=== PATIENT | female | born 1945 | race Caucasian/White ===

== ENCOUNTER 2020-01-07 21:16 | Emergency (ER) | payer OTHER ==
--- NOTE | 2020-01-07 21:24 | ED.PDOC ---
History of Present Illness - General Time Seen by Provider: 01/07/20 21:17 Source: patient, RN notes reviewed, Vital Signs reviewed - History of Present Illness Initial Comments: 74 yo F with a pmh of htn comes in after eating fried chicken with coughing and sensation of something stuck in her throat. Couldn't breath so came in for evaluation. When patient arrived she is wheezing, hypoxic and coughing. Timing/Duration: 1/2 hour Severity: moderate Allergies/Adverse Reactions: Allergies NO KNOWN ALLERGY Allergy (Verified 01/07/20 21:22) Home Medications: Ambulatory Orders Cholecalciferol [Vitamin D] 1,000 unit PO DAILY 01/07/20 Enalapril Maleate 20 mg PO DAILY 01/07/20 Olanzapine 10 mg PO DAILY 01/07/20 Omeprazole 20 mg PO DAILY 01/07/20 Pravastatin Sodium 10 mg PO DAILY 01/07/20 Suvorexant [Belsomra] 10 mg PO DAILY 01/07/20 Trazodone HCl 150 mg PO DAILY 01/07/20 Review of Systems - Review of Systems Constitutional: Denies: chills, fever EENTM: States: throat pain. Denies: blurred vision, ear discharge, mouth pain Respiratory: States: cough, short of breath, stridor, wheezing Cardiology: Denies: chest pain, palpitations Gastrointestinal/Abdominal: Denies: abdominal pain, diarrhea, nausea, vomiting Musculoskeletal: Denies: joint pain, joint swelling, muscle pain Skin: Denies: dryness, rash Neurological: Denies: headache, numbness, paresthesia, tingling, tremors, weakness Endocrine: Denies: unexplained weight gain, unexplained weight loss Hematologic/Lymphatic: Denies: easy bleeding, easy bruising Past Medical History (General) - Patient Medical History Hx Hypertension: Yes Family Medical History - Family History Mother Family History: Unknown Physical Exam - Physical Exam General Appearance: Alert, Well Developed, Well Groomed, Well Hydrated, Well Nourished Eyes, Ears, Nose, Throat Exam: normal ENT inspection Neck: non-tender, supple, normal inspection Respiratory: chest non-tender, decreased breath sounds, stridor, wheezing Cardiovascular/Chest: normal peripheral pulses, regular rate, rhythm, no edema, no gallop, no JVD, no murmur Peripheral Pulses: radial,right: 2+, radial,left: 2+, dorsalis pedis,right: 2+, dorsalis pedis,left: 2+ Gastrointestinal/Abdominal: normal bowel sounds, non tender, soft, no organomegaly, no pulsatile mass Rectal Exam: deferred Extremity: normal range of motion, non-tender, normal inspection, no pedal edema Neurologic: pen maker II-XII nml as tested, no motor/sensory deficits, alert, normal mood/affect, oriented x 3 Skin Exam: normal color, warm/dry Progress - Progress Progress: 01/07/20 21:55 patient saturating 95% on 5 L. Will not intubate due to concern that positive pressure ventilation could lead to complete obstruction. Maintain position of comfort. given small dose of benzo for anxiety. She has not taken her evening dose of olanzapine. 01/07/20 22:13 Sodium Chloride 0.9% 1000ML [Ns 1000 ml] 1,000 ml IVS ONCE Laboratory Results WBC 5.7 K/mm3 (4.8-10.8) 01/07/20 22:00 RBC 3.87 M/mm3 (4.20-5.40) L 01/07/20 22:00 Hgb 12.0 gm/dL (12.0-16.0) 01/07/20 22:00 Hct 34.4 % (36.0-47.0) L 01/07/20 22:00 MCV 88.7 fl (81.0-99.0) 01/07/20 22:00 MCH 31.0 pg (27.0-31.0) 01/07/20 22:00 MCHC 34.9 g/dL (33.0-37.0) 01/07/20 22:00 RDW 14.1 % (11.5-14.5) 01/07/20 22:00 Plt Count 280 K/mm3 (130-400) 01/07/20 22:00 MPV 6.5 fl (7.40-10.4) L 01/07/20 22:00 Absolute Neuts (auto) 3.50 K/uL (1.8-6.8) 01/07/20 22:00 Absolute Lymphs (auto) 1.70 K/uL (1.0-3.4) 01/07/20 22:00 Absolute Monos (auto) 0.30 K/uL (0.2-0.8) 01/07/20 22:00 Absolute Eos (auto) 0.10 K/uL (0.0-0.4) 01/07/20 22:00 Absolute Basos (auto) 0.00 K/uL (0.0-0.1) 01/07/20 22:00 Neutrophils % 61.8 % (42.0-78.0) 01/07/20 22:00 Lymphocytes % 29.3 % (20.0-50.0) 01/07/20 22:00 Monocytes % 5.9 % (2.0-9.0) 01/07/20 22:00 Eosinophils % 2.5 % (1.0-5.0) 01/07/20 22:00 Basophils % 0.5 % (0.0-2.0) 01/07/20 22:00 Sodium 137 mmol/L (135-145) 01/07/20 22:00 Potassium 3.1 mmol/L (3.6-5.0) L 01/07/20 22:00 Chloride 102 mmol/L (101-111) 01/07/20 22:00 Carbon Dioxide 20 mmol/L (21-31) L 01/07/20 22:00 Anion Gap 18.1 (12-18) H 01/07/20 22:00 BUN 17 mg/dL (7-18) 01/07/20 22:00 Creatinine 0.77 mg/dL (0.6-1.3) 01/07/20 22:00 BUN/Creatinine Ratio 22.1 (10-20) H 01/07/20 22:00 Random Glucose 117 mg/dL (70-105) H 01/07/20 22:00 Serum Osmolality 276.4 mOsm/L (275-295) 01/07/20 22:00 Calcium 8.4 mg/dL (8.4-10.2) 01/07/20 22:00 Total Bilirubin 0.6 mg/dL (0.2-1.0) 01/07/20 22:00 AST 23 IU/L (10-42) 01/07/20 22:00 ALT 21 IU/L (10-60) 01/07/20 22:00 Alkaline Phosphatase 63 IU/L (42-121) 01/07/20 22:00 Serum Total Protein 7.1 gm/dL (6.4-8.2) 01/07/20 22:00 Albumin 4.5 g/dl (3.2-5.5) 01/07/20 22:00 Globulin 2.6 gm/dL (2.3-3.5) 01/07/20 22:00 Albumin/Globulin Ratio 1.7 (1.1-1.9) 01/07/20 22:00 - Results/Orders Results/Orders: The data reviewed when caring for this patient included: nurse notes, prior records, etc. The history and assessments from nurses notes were reviewed and considered, and the patient's home medication list was also reviewed and considered. My assessment and the results of testing completed here in the ED were discussed with the patient/family. All questions were answered, and they express understanding of my assessment and the plan. - EKG/XRAY/CT XRAY: neck - no fb seen on neck or cxr. deviation of normal rim glottic narrowing could be from rotation. - Consult/PCP Time Called: 21:21 Consult/PCP: Dr. Barboza Departure - Departure Clinical Impression: Airway obstruction due to foreign body, Hypoxia Time of Disposition: 22:00 Disposition: Transfer to Hospital Condition: Fair Home Medications: Ambulatory Orders Cholecalciferol [Vitamin D] 1,000 unit PO DAILY 01/07/20 Enalapril Maleate 20 mg PO DAILY 01/07/20 Olanzapine 10 mg PO DAILY 01/07/20 Omeprazole 20 mg PO DAILY 01/07/20 Pravastatin Sodium 10 mg PO DAILY 01/07/20 Suvorexant [Belsomra] 10 mg PO DAILY 01/07/20 Trazodone HCl 150 mg PO DAILY 01/07/20 Transfer to Outside Facility - Transfer Information Decision to Transfer Date: 01/07/20 Decision to Transfer Time: 21:25 Reason for Transfer: specialized care not available Accepting Provider:: need bronchoscopy Accepting Facility: [facility]
--- NOTE | 2020-01-07 22:08 | RAD ---
EXAM: XR Chest, 1 View CLINICAL HISTORY: The patient is 74 years old and is Female; choking TECHNIQUE: Frontal view of the chest. COMPARISON: No relevant prior studies available. FINDINGS: LUNGS: Unremarkable. No consolidation. PLEURAL SPACE: Unremarkable. No pneumothorax. HEART: Unremarkable. No cardiomegaly. MEDIASTINUM: Unremarkable. BONES/JOINTS: Unremarkable. IMPRESSION: No acute cardiopulmonary process. Electronically signed by: Sangeetha Muse MD 01/07/2020 10:06 PM CDT
--- NOTE | 2020-01-07 22:08 | RAD ---
EXAM: XR Soft Tissue Neck CLINICAL HISTORY: The patient is 74 years old and is Female; choking TECHNIQUE: Frontal and lateral views of the soft tissues of the neck. COMPARISON: No relevant prior studies available. FINDINGS: AIRWAY: Unremarkable. No abnormal narrowing. BONES/JOINTS: Extensive degenerative change of the spine is present. SOFT TISSUES: Unremarkable. No abnormal soft tissue prominence. Normal epiglottis. IMPRESSION: No radiopaque foreign body. Unremarkable soft tissues of the neck. Electronically signed by: Sangeetha Muse MD 01/07/2020 10:07 PM CDT
[2020-01-07] MEDS ORDERED: SODIUM CHLORIDE 0.9% 1000ML 1,000 ML IVS ONE (22:13)
[2020-01-07] MEDS ORDERED: SODIUM CHLORIDE 0.9% 1000ML 1,000 ML ONE (22:13)
[2020-01-07 22:15] VITALS: BP 203/116; O2SAT 94
[2020-01-07 22:36] VITALS: TEMP 96.5
== END 2020-01-07 22:32 | disposition short-term general hospital (02) ==
LOC: ER 21:16
DX: T17.920A Food in respiratory tract, part unspecified causing asphyxiation, initial encounter (principal); I10 Essential (primary) hypertension; Z79.899 Other long term (current) drug therapy; Y92.9 Unspecified place or not applicable
CPT/HCPCS: 70360; 71045; 80053; 85025; J2060; J7030